=== PATIENT | female | born 1975 | race Asian ===

== ENCOUNTER 2022-05-05 00:23 | Inpatient (IN) | payer OTHER ==
[2022-05-05 00:43] VITALS: BMI 22.2
[2022-05-05] MEDS ORDERED: morphine SULFATE 4 MG/ML VIAL IVPUSH ONE (00:49)
[2022-05-05] MEDS ORDERED: SODIUM CHLORIDE 0.9% 500 ML INFUS.BAG IV ONE (00:49)
[2022-05-05] MEDS ORDERED: morphine SULFATE 4 MG/ML VIAL ONE (00:57)
[2022-05-05 01:06] LABS: EPI CELLS 6 /uL (0-25.1); HYALINE CASTS 3 /uL (0-3.1); PH,URINE 6.5 (5.0-8.0); URINE APPEARANCE CLEAR; URINE BACTERIA 7 /uL (0-1359); URINE BILIRUBIN NEGATIVE (NEGATIVE); URINE COLOR YELLOW; URINE GLUCOSE (UA) NEGATIVE (NEGATIVE); URINE KETONE NEGATIVE (NEGATIVE); URINE LEUK ESTERASE 2+ (NEGATIVE); URINE NITRITE NEGATIVE (NEGATIVE); URINE PROTEIN NEGATIVE (NEGATIVE); URINE RBC 41 /uL (0-23.9); URINE UROBILINOGEN 0.2 mg/dL (0.2-1.0); URINE WBC 89 /uL (0-25.8)
[2022-05-05 01:24] LABS: HEMATOCRIT 38.5 % (32.4-45.2); HEMOGLOBIN 12.1 GM/dL (10.7-15.3); MCH 21.7 pg (25.7-33.7); MCHC 31.4 g/dl (32.0-36.0); MEAN PLT VOLUME 7.5 fl (7.5-11.1); PLATELET COUNT 193 10^3/uL (134-434); RBC 5.58 M/mm3 (3.60-5.2); RDW 14.8 % (11.6-15.6); WHITE BLOOD COUNT 9.6 K/mm3 (4.0-10.0)
[2022-05-05 01:47] LABS: CALCIUM 9.3 mg/dL (8.5-10.1)
[2022-05-05 01:48] LABS: ALBUMIN 4.2 g/dl (3.4-5.0); BLOOD UREA NITROGEN 15.4 mg/dL (7-18); MAGNESIUM 2.1 mg/dL (1.8-2.4)
[2022-05-05 01:51] LABS: CREATININE 0.9 mg/dL (0.55-1.3); PHOSPHOROUS 3.2 mg/dL (2.5-4.9)
[2022-05-05 01:52] LABS: BILIRUBIN,TOTAL 0.4 mg/dL (0.2-1); TOT PROT 7.8 g/dl (6.4-8.2)
[2022-05-05] MEDS ORDERED: PIPERACILLIN/TAZOB 3.375 GM 3.375 GM in DEXTROSE 5%-WATER - 50 ML IVPB ONE (02:55)
[2022-05-05] MEDS ORDERED: PIPERACILLIN/TAZOB 3.375 GM 3.375 GM/50 ML BAG IVPB ONE (03:20)
[2022-05-05] MEDS ORDERED: KETOROLAC TROMETHAMINE 30 MG/1 ML VIAL IVPUSH ONE (06:27)
[2022-05-05] MEDS: HEPARIN NA (PORCINE) 5,000 UNITS/ML 1ML VIAL SQ SCH ×2 (07:26→14:46)
[2022-05-05 09:30] LABS: HEMATOCRIT 34.7 % (32.4-45.2); HEMOGLOBIN 10.7 GM/dL (10.7-15.3); MCH 21.3 pg (25.7-33.7); MCHC 30.7 g/dl (32.0-36.0); MEAN CELL VOLUME 69.4 fl (80-96); PLATELET COUNT 180 10^3/uL (134-434); RDW 14.8 % (11.6-15.6); WHITE BLOOD COUNT 6.5 K/mm3 (4.0-10.0)
[2022-05-05 09:44] LABS: CALCIUM 8.6 mg/dL (8.5-10.1)
[2022-05-05 09:45] LABS: ALBUMIN 3.4 g/dl (3.4-5.0); MAGNESIUM 2.1 mg/dL (1.8-2.4)
[2022-05-05 09:47] LABS: CREATININE 0.7 mg/dL (0.55-1.3)
[2022-05-05 09:48] LABS: PHOSPHOROUS 3.8 mg/dL (2.5-4.9)
[2022-05-05 09:49] LABS: BILIRUBIN,TOTAL 0.3 mg/dL (0.2-1); TOT PROT 6.2 g/dl (6.4-8.2)
[2022-05-05] MEDS: CEFTRIAXONE 1 GM in DEXTROSE 5%-WATER - 50 ML IVPB SCH (18:32)
[2022-05-06] MEDS ORDERED: LACTATED RINGERS SOLUTION 1,000 ML/1,000 ML INFUS.BAG IV SCH ×2 (00:01→16:14)
[2022-05-06] MEDS: CEFTRIAXONE 1 GM in DEXTROSE 5%-WATER - 50 ML IVPB SCH (10:36)
[2022-05-06 10:44] LABS: BASO % 0.9 % (0-2.0); EOS % 1.3 % (0-4.5); HEMOGLOBIN 11.9 GM/dL (10.7-15.3); LYMPH % 25.4 % (8-40); MCH 21.3 pg (25.7-33.7); MCHC 30.5 g/dl (32.0-36.0); MEAN CELL VOLUME 69.9 fl (80-96); MEAN PLT VOLUME 7.6 fl (7.5-11.1); NEUT % 61.4 % (42.8-82.8); PLATELET COUNT 188 10^3/uL (134-434); RBC 5.58 M/mm3 (3.60-5.2); RDW 14.9 % (11.6-15.6); WHITE BLOOD COUNT 3.7 K/mm3 (4.0-10.0)
[2022-05-06 10:48] LABS: PROTHROMBIN TIME (PATIENT) 11.5 SEC (9.7-13.0)
[2022-05-06 10:51] LABS: ACTIVATED PTT 44.8 SECONDS (25.2-36.5)
[2022-05-06 11:11] LABS: ANISOCYTOSIS 2+; MACROCYTOSIS 0; PLATELET ESTIMATE DECREASED; TARGET CELLS 1+
[2022-05-06 11:29] LABS: SODIUM 144 mmol/L (136-145)
[2022-05-06 11:37] LABS: TOT PROT 7.4 g/dl (6.4-8.2)
[2022-05-06 11:38] LABS: BILIRUBIN,TOTAL 0.5 mg/dL (0.2-1)
[2022-05-06 11:39] LABS: BILIRUBIN,DIRECT 0.2 mg/dL (0.0-0.2)
[2022-05-06 11:40] LABS: BLOOD UREA NITROGEN 9.2 mg/dL (7-18)
[2022-05-06 11:41] LABS: AMYLASE 76 U/L (25-115)
[2022-05-06 11:43] LABS: CREATININE 0.7 mg/dL (0.55-1.3); PHOSPHOROUS 3.4 mg/dL (2.5-4.9)
[2022-05-06 11:48] LABS: CALCIUM 9.4 mg/dL (8.5-10.1); CO2 30 mmol/L (21-32); GLUCOSE,RANDOM 101 mg/dL (74-106); LIPASE 144 U/L (73-393)
[2022-05-06 11:57] LABS: ANION GAP 6 MMOL/L (8-16); CHLORIDE 108 mmol/L (98-107)
[2022-05-06] MEDS ORDERED: SCOPOLAMINE HYDROBROMIDE 1 PATCH PATCH.TD72 ONE (14:25)
[2022-05-06] MEDS ORDERED: BUPIVACAINE HCL/PF 0.25% (2.5MG/ML) 10 ML VIAL ONE (14:34)
[2022-05-06] MEDS ORDERED: LIDOCAINE HCL/PF 2% SDV 5ML VIAL ONE (14:35)
[2022-05-06] MEDS ORDERED: MIDAZOLAM HCL 2 MG/2 ML SINGLE DOSE VIAL ONE (14:35)
[2022-05-06] MEDS ORDERED: DEXAMETHASONE SOD PHOSPHATE 4 MG/1 ML VIAL ONE (14:35)
[2022-05-06] MEDS ORDERED: ONDANSETRON 4 MG/2 ML VIAL ONE (14:35)
[2022-05-06] MEDS ORDERED: ROCURONIUM BROMIDE 50 MG/5 ML SYRINGE ONE (14:43)
[2022-05-06] MEDS ORDERED: cefOXitin SODIUM 1 GM VIAL (RESTRICTED TO ID) IVPB ONE (15:11)
[2022-05-06] MEDS ORDERED: BUPIVACAINE HCL/PF 0.25% (2.5MG/ML) 10 ML VIAL IJ ONE (15:13)
[2022-05-06] MEDS ORDERED: PROPOFOL 20 ML ONE (15:15)
[2022-05-06] MEDS ORDERED: NEOSTIGMINE METHYLSULFATE 0.5 MG/1 ML - 10 ML MDV ONE (15:27)
[2022-05-06] MEDS ORDERED: GLYCOPYRROLATE 0.2 MG/1 ML VIAL ONE ×3 (15:28)
[2022-05-06] MEDS ORDERED: ONDANSETRON 4 MG/2 ML VIAL IVPUSH PRN (16:01)
[2022-05-06] MEDS ORDERED: ACETAMINOPHEN 1000 MG/100 ML BAG IVPB ONE (16:02)
[2022-05-06] MEDS ORDERED: ACETAMINOPHEN INJECTION 100 ML IVPB ONE (16:06)
[2022-05-06] MEDS ORDERED: LACTATED RINGERS SOLUTION 1,000 ML IV SCH (16:15)
[2022-05-06] MEDS ORDERED: HYDROmorphone HCl 2 MG/ML VIAL IVPUSH ONE (16:29)
[2022-05-06] MEDS ORDERED: HYDROmorphone HCl 2 MG/ML VIAL ONE (17:08)
[2022-05-06] MEDS: KETOROLAC TROMETHAMINE 30 MG/1 ML VIAL IVPUSH SCH (18:42)
[2022-05-06] MEDS: HEPARIN NA (PORCINE) 5,000 UNITS/ML 1ML VIAL SQ SCH (21:50)
[2022-05-06] MEDS ORDERED: ACETAMINOPHEN 500 MG TABLET (FP) PO PRN (22:05)
[2022-05-06] MEDS ORDERED: SIMETHICONE 80 MG TAB.CHEW (FP) PO ONE (23:03)
[2022-05-06 23:23] VITALS: RESP 18
[2022-05-07] MEDS: KETOROLAC TROMETHAMINE 30 MG/1 ML VIAL IVPUSH SCH (03:06)
[2022-05-07 09:56] LABS: BASO % 0.5 % (0-2.0); EOS % 0.1 % (0-4.5); HEMATOCRIT 35.6 % (32.4-45.2); HEMOGLOBIN 11.4 GM/dL (10.7-15.3); LYMPH % 17.7 % (8-40); MCHC 32.1 g/dl (32.0-36.0); MEAN CELL VOLUME 68.4 fl (80-96); MEAN PLT VOLUME 7.7 fl (7.5-11.1); MONO % 10.3 % (3.8-10.2); NEUT % 71.4 % (42.8-82.8); PLATELET COUNT 183 10^3/uL (134-434); RBC 5.21 M/mm3 (3.60-5.2); RDW 14.7 % (11.6-15.6)
[2022-05-07 10:16] LABS: CALCIUM 8.8 mg/dL (8.5-10.1)
[2022-05-07] MEDS: HEPARIN NA (PORCINE) 5,000 UNITS/ML 1ML VIAL SQ SCH (10:16)
[2022-05-07 10:17] LABS: ALBUMIN 3.5 g/dl (3.4-5.0); BLOOD UREA NITROGEN 10.6 mg/dL (7-18); MAGNESIUM 1.9 mg/dL (1.8-2.4)
[2022-05-07 10:19] LABS: BILIRUBIN,DIRECT 0.1 mg/dL (0.0-0.2); CREATININE 0.9 mg/dL (0.55-1.3)
[2022-05-07 10:21] LABS: BILIRUBIN,TOTAL 0.3 mg/dL (0.2-1); PHOSPHOROUS 2.6 mg/dL (2.5-4.9)
[2022-05-07] MEDS ORDERED: SIMETHICONE 80 MG TAB.CHEW (FP) PO PRN (13:38)
[2022-05-07] MEDS ORDERED: SIMETHICONE 80 MG TAB.CHEW (FP) PO ONE (14:00)
[2022-05-07 14:39] VITALS: BP 128/47; PULSE 73; TEMP 98.3
== END 2022-05-07 15:48 | disposition home or self-care (01) | DRG 419 ==
LOC: JER 00:23 → JERBED 02:32 → J6S 06:30
PROVIDERS: ADMIT Internal Medicine; ATTEND Internal Medicine
PROC: 0FT44ZZ Resection of Gallbladder, Percutaneous Endoscopic Approach (ICD-10-PCS; principal; 2022-05-06 13:30)
DX: K80.00 Calculus of gallbladder with acute cholecystitis without obstruction (principal); I10 Essential (primary) hypertension; Z80.0 Family history of malignant neoplasm of digestive organs
CPT/HCPCS: 36415; 76705-TC; 80048; 80053; 80076; 81003; 82150; 82728; 83540; 83550; 83690; 83735; 84100; 84484; 84703; 85025; 85027; 85045; 85610; 85730; 86140; 86850; 86900; 86901; 87086; 88304-TC; 93005; 93010; 94760; 99285-25; C9803-CS; J1644; U0003; U0005